=== PATIENT | female | born 1975 | race Caucasian/White ===

== ENCOUNTER 2020-07-26 16:56 | Outpatient (REF) | payer OTHER, SELFPAY ==
[2020-07-26 17:21] LABS: COVID-19 Test Positive (Negative); IDNOW Serial# 9DD0AD1C
== END 2020-07-26 16:57 | disposition home or self-care (01) ==
LOC: HO.LAB 16:56
PROVIDERS: PCP Internal Medicine; Visit Provider Internal Medicine
DX: Z20.822 Contact with and (suspected) exposure to COVID-19 (principal)
CPT/HCPCS: 36415; 87635